=== PATIENT | female | born 1965 | race Two or more races ===

== ENCOUNTER 2021-09-17 13:13 | Emergency (ER) | payer OTHER ==
[~2021-09-17] VITALS: Ht 154.9 cm; Wt 79.8 kg
[2021-09-17] MEDS ORDERED: IV NS 0.9% 1,000 ML BAG IV ONE (14:00)
--- NOTE | 2021-09-17 14:10 | NUR ---
LAC #18G S/L; PATENT AND INTACT
[2021-09-17 14:15] LABS: BASOPHILS # (AUTO) 0.2 K/uL (0.0-0.2); BASOPHILS % (AUTO) 1.3 % (0.0-2.0); EOSINOPHILS % (AUTO) 1.5 % (0.0-6.0); HEMATOCRIT 44 % (33-45); HEMOGLOBIN 14.5 g/dL (11.5-14.8); LYMPHOCYTES # (AUTO) 3.9 K/uL (0.8-4.8); LYMPHOCYTES % (AUTO) 32.2 % (20.0-44.0); MEAN CORPUSCULAR HGB CONC 33 g/dl (31.0-36.0); MEAN CORPUSCULAR VOLUME 88 fL (82-100); MONOCYTES # (AUTO) 0.8 K/uL (0.1-1.30); MONOCYTES % (AUTO) 6.7 % (2.0-12.0); NEUTROPHILS # (AUTO) 7.1 K/uL (1.8-8.9); NEUTROPHILS % (AUTO) 58.3 % (43.0-81.0); PLATELET COUNT (AUTO) 321 K/uL (150-450); RED BLOOD CELL COUNT(AUTO) 4.96 MIL/uL (4.0-5.2); WHITE BLOOD COUNT (AUTO) 12.2 K/uL (4.3-11.0)
--- NOTE | 2021-09-17 14:25 | NUR ---
ORTHOSTATIC BP: 1415: BP 134/84, HR 86 1420: BP 149/80, HR 83 1425: BP 160/90, HR 84
[2021-09-17] MEDS ORDERED: MECLIZINE HCL 25 MG TABLET PO ONE (14:30)
--- NOTE | 2021-09-17 14:31 | NUR ---
BS 126
--- NOTE | 2021-09-17 14:33 | NUR ---
TRAVELING FREIGHT AGENT AT PT'S BED SIDE
[2021-09-17] MEDS ORDERED: MECLIZINE HCL 25 MG TABLET ONE (14:35)
--- NOTE | 2021-09-17 14:53 | NUR ---
PT TAKEN TO CT VIA DOMENIC
[2021-09-17 15:09] LABS: CALCIUM, SERUM 8.8 mg/dL (8.5-10.1); CARBON DIOXIDE 27 mmol/L (21-32); CHLORIDE 104 mmol/L (98-107); CREATININE 0.9 mg/dL (0.6-1.3); GLUCOSE 114 mg/dL (74-106); POTASSIUM 4.2 mmol/L (3.5-5.1); SODIUM SERUM 139 mmol/L (136-145); UREA NITROGEN, BLOOD 11 mg/dL (7-18)
[2021-09-17] MEDS ORDERED: MECL-159 PO (15:50)
[2021-09-17 16:13] VITALS: BP 137/63
--- NOTE | 2021-09-17 16:13 | NUR ---
Patient discharged to home in stable condition. rx, Written and verbal after care instructions given. Patient verbalizes understanding of instruction. pt ambulatory with a steady gait. dc iv with no active bleeding
== END 2021-09-17 16:14 | disposition home or self-care (01) ==
LOC: ER 13:13
DX: R42 Dizziness and giddiness (principal); E11.9 Type 2 diabetes mellitus without complications
CPT/HCPCS: 36415; 70450; 71045; 80048; 82962; 84484; 85025; 85730; 93005; 96360; 99285; J7030 ×2; J8597

== ENCOUNTER 2024-11-25 11:07 | Emergency (ER) | payer OTHER ==
[~2024-11-25] VITALS: Ht 152.4 cm; Wt 74.8 kg
[~2024-11-25 11:07] MED LIST: MECL-159 PO
[2024-11-25 12:21] LABS: CALCIUM, SERUM 9.1 mg/dL (8.5-10.1); CREATININE 0.9 mg/dL (0.6-1.3); POTASSIUM 4.5 mmol/L (3.5-5.1)
[2024-11-25 12:28] LABS: LACTIC ACID 1.9 mmol/L (0.4-2.0)
[2024-11-25 12:35] LABS: ALBUMIN 3.5 g/dL (3.4-5.0); BILIRUBIN,DIRECT 0.2 mg/dL (0.0-0.2); TOTAL PROTEIN, SERUM 8.6 g/dL (6.4-8.2)
[2024-11-25 12:37] LABS: BASOPHILS # (AUTO) 0.2 K/uL (0.0-0.2); EOSINOPHILS # (AUTO) 0.2 K/uL (0.0-0.7); HEMATOCRIT 47 % (33-45); HEMOGLOBIN 15.5 g/dL (11.5-14.8); LYMPHOCYTES # (AUTO) 5.5 K/uL (0.8-4.8); LYMPHOCYTES % (AUTO) 35.2 % (20.0-44.0); MEAN CORPUSCULAR HEMOGLOBIN 29 PG (26.0-33.0); MEAN CORPUSCULAR HGB CONC 33 g/dl (31.0-36.0); MEAN CORPUSCULAR VOLUME 88 fL (82-100); MONOCYTES # (AUTO) 1.1 K/uL (0.1-1.30); MONOCYTES % (AUTO) 7.1 % (2.0-12.0); NEUTROPHILS # (AUTO) 8.7 K/uL (1.8-8.9); NEUTROPHILS % (AUTO) 55.7 % (43.0-81.0); PLATELET COUNT (AUTO) 259 K/uL (150-450); RED BLOOD CELL COUNT(AUTO) 5.31 MIL/uL (4.0-5.2); RED CELL DISTRIBUTION WIDTH 13.4 % (11.5-15.0); WHITE BLOOD COUNT (AUTO) 15.7 K/uL (4.3-11.0)
[2024-11-25] MEDS: MORPHINE SULFATE INJ 2 MG/ML DISP.SYRIN IV ONE (13:30)
[2024-11-25] MEDS: KETOROLAC TROMETHAMINE 15 MG/ML VIAL IV ONE (13:30)
[2024-11-25] MEDS: ONDANSETRON HCL/PF 4 MG/2 ML VIAL IVP ONE (13:30)
[2024-11-25] MEDS ORDERED: IV NS 0.9% 250 ML IV ONE (13:38)
[2024-11-25] MEDS ORDERED: IOHEXOL-300 100 ML VIAL IV ONE (13:38)
[2024-11-25] MEDS ORDERED: KETOROLAC TROMETHAMINE 15 MG/ML VIAL ONE (14:16)
[2024-11-25] MEDS ORDERED: ONDANSETRON HCL/PF 4 MG/2 ML VIAL ONE (14:16)
[2024-11-25] MEDS ORDERED: MORPHINE SULFATE INJ 2 MG/ML DISP.SYRIN ONE (14:17)
[2024-11-25 14:27] LABS: APPEARANCE,URINE CLEAR (CLEAR); BILIRUBIN,URINE NEGATIVE (NEGATIVE); BLOOD, URINE TRACE-INTA Ery/uL (NEGATIVE); COLOR,URINE YELLOW (YELLOW); KETONES,URINE TRACE mg/dL (NEGATIVE); LEUKOCYTE ESTERASE ,URINE NEGATIVE (NEGATIVE); NITRITE, URINE NEGATIVE (NEGATIVE); PH,URINE 5.5 (5.0-8.0); PROTEIN,URINE NEGATIVE (NEGATIVE); UGLUCOSE 3+ mg/dL (NEGATIVE); UROBILINOGEN,URINE 0.2 EU/dL (0.2)
[2024-11-25 14:34] LABS: ADD URINE CULTURE NO; BACTERIA,URINE Rare /HPF (None Seen); RBC,URINE 0-2 /HPF (0-2); SQUAMOUS EPITHELIAL CELL,UR Few /HPF (None Seen); WBC,URINE 0-2 /HPF (0-3)
[2024-11-25] MEDS: PIPERACILLIN /TAZOBACTAM 3.375 G in IV D5W 50 ML IV ONE (17:28)
[2024-11-26 02:00] VITALS: BP 123/67; TEMP 98.3; O2SAT 95
== END 2024-11-26 02:55 | disposition short-term general hospital (02) ==
LOC: ER 11:13
DX: K80.20 Calculus of gallbladder without cholecystitis without obstruction (principal); R10.31 Right lower quadrant pain; E11.9 Type 2 diabetes mellitus without complications; K76.0 Fatty (change of) liver, not elsewhere classified
CPT/HCPCS: 99285; 74177; 96365; 76705; 96375; 96367; 85025; 80048; 83605; 83690; 80076; 81001; 36415; J1885; J2405; J2543; J7060; J7050; J2270; Q9967